=== PATIENT | male | born 1975 | race Caucasian/White ===

== ENCOUNTER → 2025-11-11 | Outpatient (CLI) | payer BC, SELFPAY ==
--- OUTSIDE RECORDS SUMMARY | 2025-11-11 08:07 | XMS RPT_ITS | CCD ---
Author Organization [facility] Care Team Providers Care Early Childhood Education Instructor Name Role Phone Christiana Foster Unavailable Unavailable Christiana Foster Unavailable Unavailable Christiana Foster Unavailable Unavailable Naveed, Christiana Unavailable Unavailable Christiana Foster Unavailable Unavailable Christiana Foster Unavailable Unavailable Unavailable Christiana Foster Unavailable Zeke Powell Unavailable Unavailable Zeke Powell Attending Unavailable Dr. Christiana Foster Primary Care Unav ailable CHRISTIANA FOSTER Primary Care Unavailable Christiana Foster MD Primary Care Provider [phone] IRMA SPARKS Attending Unavailable IRMA SPARKS Referring Unavailable CHRISTIANA FOSTER Primary Care Unavailable IMRA SPARKS Attending Unavailable CHRISTIANA FOSTER Primary Care Unavailable Medications Current Medications Medication Drug Class(es) Dates Sig (Normalized) Sig (Original) doxycycline hyclate 100 mg oral tablet (1 source) Tetracycline-c lass Drug Start: 3 End: 3 take 1 tablet by mouth twice daily doxycycline hyclate 100 mg oral tablet ; 1 tab(s) orally 2 times a day Quantity: 14 Refills: 0 Ordered: 02-Jan-2023 Zeke Powell Start: 02-Jan-2023 End: 08-Jan-2023 Generic Substitution Allowed Comments: Avoid prolonged or excessive exposure to direct and/or artificial sunlight while taking this medication.Do not take this drug if you are .Finish all this medication unless otherwise directed by prescriber.Medication should be taken with plenty of water. Comment on above: Avoid prolonged or e xcessive exposure to direct and/or artificial sunlight while taking this medication.Do not take this drug if you are .Finish all this medication unless otherwise directed by prescriber.Medication should be taken with plenty of water. hydroCHLOROthiazide 25 mg oral tablet (4 sources) Thiazide Diuretic Start: 3 End: 4 take 1 tablet by mouth once daily hydroCHLOROthiazide (HYDRODiuril) 25 mg tablet Indications: Benign essential HTN Take 1 tablet (25 mg) by mouth once daily. 30 tablet 11 06/14/2023 06/13/2024 Active Start: 04-09-2023 End: 05-14-2023 take 1 tablet by mouth once daily hydroCHLOROthiazide (HYDRODiuril) 12.5 mg tablet Indications: Benign essential HTN Take 1 tablet (12.5 mg) by mouth once daily. 30 tablet 04/09/2023 05/14/2023 Discontinued (Dose adjustment) losartan potassium 25 mg oral tablet (1 source) Angiotensin 2 Receptor Dez Start: 06-14-2023 End: 06-13-2024 take 1 tablet by mouth once daily losartan (Cozaar) 25 mg tablet Indications: Benign essential HTN Take 1 tablet (25 mg) by mouth once daily. 30 tablet 06/14/2023 06/13/2024 Active predniSONE 10 mg oral tablet (1 source) Start: 01-02-2023 End: 01-06-2023 take 3 tablets by mouth once daily at mealtime predniSONE 10 mg oral tablet ; 3 tab(s) orally once a day x 5 days Quantity: 15 Refills: 0 Ordered: 02-Jan-2023 Zeke Powell Start: 02-Jan-2023 End: 06-Jan-2023 Generic Substitution Allowed Comments: It is very important that you take or use this exactly as directed. Do not skip doses or discontinue unless directed by your doctor.Obtain medical advice before taking any non-prescription drugs as some may affect the action of this medication.Take with food or milk. Comment on above: It is very important that you take or use this exactly as directed. Do not skip doses or discontinue unless directed by your doctor.Obtain medical advice before taking any non-prescription drugs as some may affect the action of this medication.Take with food or milk. Completed/Discontinued Medications Medication Drug Class(es) Dates Sig (Normalized) Sig (Original) [id number] 200 actuat albuterol 0.09 mg/actuat metered dose inhaler (1 source) beta2-Adrenergic Agonist Start: 01-02-2023 take 2 puff(s) by inhalation twice daily as needed for cough albuterol 90 mcg/inh inhalation aerosol ; 2 puff(s) inhaled 2 times a day as needed for cough Quantity: 8.5 Refills: 0 Ordered: 02-Jan-2023 NathanZeke fay Start: 02-Jan-2023 Generic Substitution Allowed Comments: For inhalation only.It is very important that you take or use this exactly as directed. Do not skip doses or discontinue unless directed by your doctor.Obtain medical advice before taking any non-prescription drugs as some may affect the action of this medication.Shake well before use. Comment on above: For inhalation only. It is very important that you take or use this exactly as directed. Do not skip doses or discontinue unless directed by your doctor.Obtain medical advice before taking any non-prescription drugs as some may affect the action of this medication.Shake well before use. lisinopril 10 mg oral tablet (3 sources) Angiotensin Converting Enzyme Inhibitor Start: 07-22-2020 take 1 tablet by mouth once daily Lisinopril 10 MG Oral Tablet TAKE 1 TABLET DAILY. Quantity: 90 Refills: 3 Ordered: 27-Sep-2021 Christiana Foster MD Start : 22-Jul-2020 Active Multivitamin Oral Tablet (3 sources) Start: 07-22-2020 take 1 tablet by mouth once daily Multivitamin Oral Tablet TAKE 1 TABLET DAILY. Quantity: 0 Refills: 0 Ordered: 22-Jul-2020 DO Start : 22-Jul-2020 Active No Reported Medications (1 source) No Reported Medications Refills: 0 Active Problems Active Problems Problem Classification Problem Date Documented Da te Episodic/Chronic Essential hypertension (11 sources) Benign essential hypertension; Translations: [Benign essential hypertension] Onset: 04-09-2023 Chronic Headache; including migraine (3 sources) Headache; including migraine; Translations: [Headache, unspecified] Onset: 01-02-2023 01-02-2023 Comment on above: COUGH HEADACHE Immunizations and screening for infectious disease (9 sources) Patient encounter status; Translations: [Other specified vaccination] Episodic Malaise and fatigue (7 sources) Fatigue; Translations: [Other malaise and fatigue] Onset: 01-02-2023 04-09-2023 Episodic Other lower respiratory disease (2 sources) Wheezing; Translations: [Wheezing] 01-02-2023 Episodic Other non-traumatic joint disorders (6 sources) Joint pain; Translations: [Pain in joint, site unspecified] Onset: 04-09-2023 04-09-2023 Episodic Other nutritional; endocrine; and metabolic disorders (3 sources) Obesity; Translations: [Morbid (severe) obesity due to excess calories] Onset: 04-09-2023 04-09-2023 Chronic Other screening for suspected conditions (not mental disorders or infectious disease) (7 sources) Decreased testosterone level ; Translations: [Other nonspecific findings on examination of blood] Onset: 04-09-2023 04-09-2023 Episodic Unclassified (1 source) Cough, unspecified; Translations: [Cough, unspecified] Onset: 01-02-2023 Past or Other Problems Problem Classification Problem Date Documented Da te Episodic/Chronic Other lower respiratory disease (1 source) Wheezing; Translations: [Wheezing] Onset: 01-02-2023 Episodic Other upper respiratory infections (3 sources) Acute upper respiratory infection; Translations: [Acute upper respiratory infections of unspecified site] Onset: 01-02-2023 01-02-2023 Episodic Screening and history of mental health and substance abuse codes (1 source) Personal history of nicotine dependence; Translations: [Personal history of nicotine dependence] Onset: 01-02-2023 Episodic Unclassified (2 sources) Patient encounter status; Translations: [Screening for diabetes mellitus] Unclassified (1 source) Onset: 06-14-2023 06-14-2023 Results Test Name Value Interpretation Reference Range Facility BASIC METABOLIC PANELon 06-0 Anion gap [Moles/Vol] 12 mmol/L Normal 10 - 20 [facility] Comment on above: Performed By: #### B MP #### [address] [address] Calcium [Mass/Vol] 9.1 mg/dL Normal 8.6 - 10.3 [facility] Comment on above: Performed By: #### B MP #### [address] [address] Chloride [Moles/Vol] 105 mmol/L Normal 98 - 107 [facility] Comment on above: Performed By: #### B MP #### [address] [address] Creatinine [Mass/Vol] 0.95 mg/dL Normal 0.50 - 1.30 [facility] Comment on above: Performed By: #### B MP #### [address] [address] eGFR MALE >90 Normal >90 [facility] Comment on above: Result Comment: CALC ULATIONS OF ESTIMATED GFR ARE PERFORMED USING THE 2020 CKD-EPI STUDY REFIT EQUATION WITHOUT THE RACE VARIABLE FOR THE IDMS-TRACEABLE CREATININE METHODS. https://jasn.asnjournals.org/content//ASN.6171699994 Performed By: #### B MP #### [place] [id number] Glucose [Mass/Vol] 100 mg/dL High 74 - 99 [facility] Comment on above: Performed By: #### B MP #### [place] [id number] HCO3 (Bld) [Moles/Vol] 26 mmol/L Normal 21 - 32 [facility] Comment on above: Performed By: #### B MP #### [address] [address] Potassium [Moles/Vol] 4.0 mmol/L Normal 3.5 - 5.3 [facility] Comment on above: Performed By: #### B MP #### [address] [address] Sodium [Moles/Vol] 139 mmol/L Normal 136 - 145 [facility] Comment on above: Performed By: #### B MP #### [address] [address] Urea nitrogen [Mass/Vol] 16 mg/dL Normal 6 - 23 [facility] Comment on above: Performed By: #### B MP #### [address] [address] Lab Specimen Source Normal [facility] Comment on above: Performed By: #### B MP #### [facility] [address] [place] [address] Provider Note - ED v3on 12-20 Provider Note - ED v3 Provider Note: Chart Review: ED NOTES ED NOTES: Presents for evaluation of URI. Symptoms including cough, congestion, body aches, malaise, and headache have been present for 5 days and refractory to OTC meds. No fever, chills, loss of taste/smell, nausea, vomiting, abdominal pain, CP, or SOB. No exacerbating factors. No known COVID 19/flu exposure. Is a former smoker. HISTORY OF PRESENTING ILLNESS YESSI is a 47 year old Male and was seen by me at 02-Jan-2023 11:45. Triage Information: Most recent Vital Sign Value Date PAST MEDICAL HISTORY ALLERGIES/INTOLERANCES: No Known Allergies HEALTH HISTORY: No documented data. OUTPATIENT MEDICATIONS: Home Medications Review Status for Reconciliation: Complete Med Status: No Current Medications SIGNIFICANT EVENTS: Social/Behavioral Description:social alcohol , oral tobacco REVIEW OF SYSTEMS All other systems reviewed and are negative REVIEW OF SYSTEMS: Comments See HPI PHYSICAL EXAM CONSTITUTIONAL: Well appearing, well nourished, awake, alert, oriented to person, place, time/situation and in no apparent distress. HENMT: Airway patent, ears with clear tympanic membranes bilaterally. Nasal mucosa clear. Mouth with normal mucosa. Throat has no vesicles, no oropharyngeal exudates and uvula is midline. Face with no lymph node enlargement. EYES: Clear bilaterally, pupils equal, round and reactive to light. CARDIOVASCULAR: Normal rate, regular rhythm. Heart sounds S1, S2. No murmurs, rubs or gallops. PMI non-displaced. RESPIRATORY: Scattered wheezing and decreased air movement bilaterally. No rales or rhonchi. NEUROLOGICAL: Alert and oriented, no focal deficits, no motor or sensory deficits. SKIN: Skin normal color for race, warm, dry and intact. No evidence of trauma. PSYCHIATRIC: Alert and oriented to person, place, time/situation. normal mood and affect. No apparent risk to self or others. CRITICAL CARE VITAL SIGNS: T PRBP SpO2O2(LPM) %FiO2 Method 02-Jan-2023 11:32:[id number] 95 MDM MDM/ED COURSE: Discussed Findings with: patient Data Reviewed: vital signs Treatment Plan: Rx doxycycline, prednisone and albuterol inhaler. Duoneb give in office, pt tolerated well, increased air movement and decreased wheezing post treatment. Patient's clinical presentation is otherwise unremarkable at this time. Patient is discharged with instructions to follow-up with primary care or seek emergency medical attention for worsening symptoms or any new concerns. DISPOSITION Diagnosis/Annotation: ED Dx Name:Acute upper respiratory infection Code:J06.9 Name:Wheezing Code:R06.2 Disposition: discharged Type: home CONSULT CRITICAL CARE TIME Is this a critically ill patient: no Electronic Signatures: Zeke Powell (GREEN MATERIAL VALUE ADDED ASSESSOR-BACK UP SCAN COORDINATOR) (Signed 02-Jan-2023 11:53) Authored: ED Notes, HPI, PMH, ROS, PE, Results/Vital Signs, MDM/ED Course, Clinical Impression, Attestation, Chart Review, Scores Last Updated: 02-Jan-2023 11:53 by Zeke Powell (GREEN MATERIAL VALUE ADDED ASSESSOR-BACK UP SCAN COORDINATOR) Normal [facility] Office Visit (Primary Care T xt/Forms)on 08-12-2021 Follow-up visit Diagnoses/Problems Assessed Benign essential HTN (401.1) (I10) Orders Benign essential HTN Renew: Lisinopril 10 MG Oral Tablet; TAKE 1 TABLET DAILY Comprehensive Metabolic Panel; Status:Hold For - Exact Date; Requested for:Approx 12Aug2022; Patient Discussion/Summary Follow-up in 1 year for hypertension, get blood testing prior Provider Impressions Provider Impressions Free Text Note Form: Patient is seen today for hypertension, blood pressure is under good control, continues to complain of fatigue, denies unrestful sleep, denies snoring at night, suspicious about possible sleep apnea, blood testing in the past has been normal. Patient was encouraged about healthy lifestyle, plan to recheck again in 1 year. Chief Complaint 6 MO F/U HTN REV LABS History of Present Illness No headache, chest pain, shortness of breath, dizziness, lightheadedness, or edema + fatigue HBP less than 140/90 Review of Systems Constitutional: NAD, no fevers, chills, sweats or fatigue Rep: no cough or shortness of breath Cardio: no chest pain, edema, or palpitations GI: no nausea, vomiting, diarrhea, constipation, or heartburn : normal urine flow and stream, no nocturia or dysuria MS: no joint pain or significant limits of function Skin: no visible rashes or suspicious lesions Neuro: alert and oriented X4, no numbness, tingling or issues with balance Psych: no anxiety or depression Active Problems Problems Arthralgia (719.40) (M25.50) Benign essential HTN (401.1) (I10) Encounter for immunization (V03.89) (Z23) Fatigue (780.79) (R53.83) Low testosterone in male (790.99) (R79.89) Screening for diabetes mellitus (V77.1) (Z13.1) Screening for lipid disorders (V77.91) (Z13.220) Surgical History Problems History of Fracture repair Family History Mother No pertinent family history Father No pertinent family history Social History Problems Consumes alcohol (V49.89) (Z72.89) Former smoker (V15.82) (Z87.891) Patient has living will (V49.89) (Z78.9) Smokeless tobacco use (305.1) (Z72.0) Current Meds Medication NameInstruction Lisinopril 10 MG Oral TabletTAKE 1 TABLET DAILY. Multivitamin Oral TabletTAKE 1 TABLET DAILY. Allergies Medication No Known Drug Allergies Physical Exam Gen: Alert and oriented, no acute distress HEENT: normal TMs/external ear, conjunctiva normal, PERRLA/EOMI, neck supple, no lymphadenopathy or thyromegaly Resp: clear to auscultation, no audible wheezes, rales, or rhonchi, normal chest movement Cardio: regular rate and rhythm, no murmur, clicks or gallops heard, normal peripheral pulses, no edema Abdomen: normal bowel sounds, soft, non tender, non distended, no organomegaly Skin: no visible rashes or abnormal skin lesions, warm and dry [place]eruo: Alert and oriented, normal gross movement of extremities Psych: cooperative and appropriate Results/Data Comprehensive Metabolic [id number] 07:22Christiana Pratt Test NameResultFlagReference Glucose, Serum95 mg/dL74 - 99 Sodium, Nnibm385 mmol/L136 - 145 POTASSIUM4.2 mmol/L3.5 - 5.3 Chloride, Pbdav457 mmol/LH98 - 107 Bicarbonate, Serum25 mmol/L21 - 32 Anion Gap, Serum9 mmol/LL10 - 20 Blood Urea Nitrogen, Serum10 mg/dL6 - 23 CREATININE0.87 mg/dLSee Below Reference Range: 0.50 - 1.30 Calcium, Serum8.9 mg/dL8.6 - 10.3 Albumin, Serum4.1 g/dL3.4 - 5.0 ALKALINE [id number] U/L33 - 120 Protein, Total Serum6.6 g/dL6.4 - 8.2 Bilirubin, Serum Total0.7 mg/dL0.0 - 1.2 ALT (SGPT), Serum34 U/L10 - 52 Patients treated with Sulfasalazine may generate falsely decreased results for ALT. GFR Non >60 mL/min/1.73m2>60 GFR >60 mL/min/1.73m2>60 CALCULATIONS OF ESTIMATED GFR ARE PERFORMED USING THE MDRD STUDY EQUATION FOR THE IDMS-TRACEABLE CREATININE METHODS. CLIN CHEM 2007;53:766-72 AST21 U/L9 - 39 Signatures Electronically signed by : Christiana Foster MD; Aug 12 2021 8:20AM EST (Author) Normal [employer] Tobacco Screening.on 021 Fall risk assessment a) No falls within the last year [employer] [facility] Work Phone: Tobacco use status [facility] b) No [employer] [facility] Work Phone: Laboratory - Chemistry and C hemistry - challengeon 08-04-2021 Albumin BCP dye [Mass/Vol] 4.1 g/dL 3.4 - 5.0 [employer] [facility] Work Phone: ALP [Catalytic activity/Vol] 64 U/L 33 - 120 [employer] [facility] Work Phone: ALT With P-5'-P [Catalytic activity/Vol] 34 U/L 10 - 52 [employer] [facility] Work Phone: Comment on above: Patients treated wit h Sulfasalazine may generate falsely decreased results for ALT. Anion gap [Moles/Vol] 9 mmol/L below low threshold 10 - 20 [employer] [facility] Work Phone: AST With P-5'-P [Catalytic activity/Vol] 21 U/L 9 - 39 [employer] [facility] Work Phone: Bilirubin [Mass/Vol] 0.7 mg/dL 0.0 - 1.2 -[employer] [facility] Work Phone: Calcium [Mass/Vol] 8.9 mg/dL 8.6 - 10.3 [facility] Work Phone: Chloride [Moles/Vol] 108 mmol/L above high threshold 98 - 107 -[employer] [facility] Work Phone: CO2 [Moles/Vol] 25 mmol/L 21 - 32 [facility] [employer] [facility] Work Phone: Creatinine [Mass/Vol] 0.87 mg/dL See Below [employer] [facility] Work Phone: Comment on above: Reference Range: 0.5 0 - 1.30 Glucose [Mass/Vol] 95 mg/dL 74 - 99 [facility] Work Phone: Potassium [Moles/Vol] 4.2 mmol/L 3.5 - 5.3 [facility] Work Phone: Protein [Mass/Vol] 6.6 g/dL 6.4 - 8.2 [facility] Work Phone: Sodium [Moles/Vol] 138 mmol/L 136 - 145 [facility] Work Phone: Urea nitrogen [Mass/Vol] 10 mg/dL 6 - 23 [employer] [facility] Work Phone: No Panel Informationon 08-04 >60 >60 [employer] [facility] Work Phone: Comment on above: CALCULATIONS OF AP MATED GFR ARE PERFORMED USING THE MDRD STUDY EQUATION FOR THE IDMS-TRACEABLE CREATININE METHODS. CLIN CHEM 2007;53:766-72 Office Visit (Primary Care T xt/Forms)on 02-01-2021 Follow-up visit Diagnoses/Problems Assessed Encounter for immunization (V03.89) (Z23) Benign essential HTN (401.1) (I10) Orders Benign essential HTN Renew: Lisinopril 10 MG Oral Tablet; TAKE 1 TABLET DAILY Comprehensive Metabolic Panel; Status:Hold For - Exact Date; Requested for:Approx 04Aug2021; Patient Discussion/Summary Follow-up in 6 months for hypertension, get blood testing done prior and increase lisinopril to 10 mg a day. Provider Impressions Provider Impressions Free Text Note Form: Patient seen today in 6-month follow-up for hypertension. Blood pressure in the office is still above 140/90, will increase lisinopril to 10 mg once a day, recheck in 6 months. Patient was advised to check blood pressure at home with a goal being less than 140/90. Chief Complaint 6 MO F/U HTN REV LABS History of Present Illness BPs at home running high 130s-140/80s No chest pain/pressure, SOB, headaches, dizziness, lightheadedness, or edema Review of Systems Constitutional: No apparent distress, no fevers, chills, sweats, or fatigue Respiratory: No cough, SOB Cardiac: No chest pain, edema, or palpitations Active Problems Problems Arthralgia (719.40) (M25.50) Benign essential HTN (401.1) (I10) Fatigue (780.79) (R53.83) Low testosterone in male (790.99) (R79.89) Screening for diabetes mellitus (V77.1) (Z13.1) Screening for lipid disorders (V77.91) (Z13.220) Surgical History Problems History of Fracture repair Family History Mother No pertinent family history Father No pertinent family history Social History Problems Consumes alcohol (V49.89) (Z72.89) Former smoker (V15.82) (Z87.891) Patient has living will (V49.89) (Z78.9) Smokeless tobacco use (305.1) (Z72.0) Current Meds Medication NameInstruction Lisinopril 5 MG Oral TabletTAKE 1 TABLET BY MOUTH EVERY DAY Multivitamin Oral TabletTAKE 1 TABLET DAILY. Allergies Medication No Known Drug Allergies Vitals Vital Signs Recorded: 01Feb2021 07:59AM Temperature: 97.8 F Heart Rate: 96 Systolic: 148 Diastolic: 82 Height: 6 ft 1 in Weight: 282 lb 2 oz BMI Calculated: 37.22 BSA Calculated: 2.49 Tobacco Use: b) No Fall Screening: a) No falls within the last year O2 Saturation: 98 Physical Exam General: alert and oriented, no acute distress Respiratory: clear to ascultation, no audible wheezes, rales, or rhonchi. Normal chest expansion Cardiac: regular rate and rhythm, no significant murmur. Normal peripheral pulses, no edema. Brisk capillary refill Results/Data Basic Metabolic [id number] 07:23Christiana Pratt Test NameResultFlagReference Glucose, Rdway659 mg/dLH74 - 99 Sodium, Ywvkw846 mmol/L136 - 145 POTASSIUM4.2 mmol/L3.5 - 5.3 Chloride, Xwnuu661 mmol/LH98 - 107 Bicarbonate, Serum25 mmol/L21 - 32 Anion Gap, Serum10 mmol/L10 - 20 Blood Urea Nitrogen, Serum12 mg/dL6 - 23 CREATININE0.95 mg/dLSee Below Reference Range: 0.50 - 1.30 GFR Non >60 mL/min/1.73m2>60 GFR >60 mL/min/1.73m2>60 CALCULATIONS OF ESTIMATED GFR ARE PERFORMED USING THE MDRD STUDY EQUATION FOR THE IDMS-TRACEABLE CREATININE METHODS. CLIN CHEM 2007;53:766-72 Calcium, Serum9.0 mg/dL8.6 - 10.3 Signatures Electronically signed by : Christiana Foster MD; Feb 01 2021 8:18AM EST (Author) Normal [facility] Vital Signs Date Time Vital Sign Value Performing Clinician Rosario urena 06-14-2023 15:55-0400 Body height 188 cm Irma Jp TRACIE-BACK UP SCAN COORDINATOR Work Phone: [facility] 06-14-2023 15:55-0400 Body mass index (BMI) [Ratio] 37.53 kg/m2 Irma Hemarina GREEN MATERIAL VALUE ADDED ASSESSOR-BACK UP SCAN COORDINATOR Work Phone: [facility] 06-14-2023 15:55-0400 Body weight 132.59 kg Irma Jp GREEN MATERIAL VALUE ADDED ASSESSOR-BACK UP SCAN COORDINATOR Work Phone: [facility] 06-14-2023 15:55-0400 Diastolic blood pressure 82 mm[Hg] Irma Jp GREEN MATERIAL VALUE ADDED ASSESSOR-BACK UP SCAN COORDINATOR Work Phone: [facility] 06-14-2023 15:55-0400 Heart rate 100 /min Irma Wood GREEN MATERIAL VALUE ADDED ASSESSOR-BACK UP SCAN COORDINATOR Work Phone: [facility] 06-14-2023 15:55-0400 SaO2% (BldA) [Mass fraction] 98 % Irma Wood GREEN MATERIAL VALUE ADDED ASSESSOR-BACK UP SCAN COORDINATOR Work Phone: [facility] 06-14-2023 15:55-0400 Systolic blood pressure 162 mm[Hg] Irma Wood GREEN MATERIAL VALUE ADDED ASSESSOR-BACK UP SCAN COORDINATOR Work Phone: [facility] 05-14-2023 16:01-0400 Body height 188 cm Irma Wood GREEN MATERIAL VALUE ADDED ASSESSOR-BACK UP SCAN COORDINATOR Work Phone: [facility] 05-14-2023 16:01-0400 Body mass index (BMI) [Ratio] 38 kg/m2 Irma Wood GREEN MATERIAL VALUE ADDED ASSESSOR-BACK UP SCAN COORDINATOR Work Phone: [facility] 05-14-2023 16:01-0400 Body weight 134.26 kg Irma Wood GREEN MATERIAL VALUE ADDED ASSESSOR-BACK UP SCAN COORDINATOR Work Phone: [facility] 05-14-2023 16:01-0400 Diastolic blood pressure 88 mm[Hg] Irma Wood GREEN MATERIAL VALUE ADDED ASSESSOR-BACK UP SCAN COORDINATOR Work Phone: [facility] 05-14-2023 16:01-0400 Heart rate 99 /min Irma Wood GREEN MATERIAL VALUE ADDED ASSESSOR-BACK UP SCAN COORDINATOR Work Phone: [facility] 05-14-2023 16:01-0400 SaO2% (BldA) [Mass fraction] 94 % Irma Wood GREEN MATERIAL VALUE ADDED ASSESSOR-BACK UP SCAN COORDINATOR Work Phone: [facility] 05-14-2023 16:01-0400 Systolic blood pressure 180 mm[Hg] Irma Wood GREEN MATERIAL VALUE ADDED ASSESSOR-BACK UP SCAN COORDINATOR Work Phone: [facility] 01-02-2023 13:32-0500 Body height 188 cm Christiana Foster Other Phone: [facility] 01-02-2023 13:32-0500 Body temperature 97.7 [degF] Christiana Foster Other Phone: [facility] 01-02-2023 13:32-0500 Diastolic blood pressure 103 mm[Hg] Christiana Foster Other Phone: [facility] 01-02-2023 13:32-0500 Heart rate 85 /min Christiana Foster Other Phone: [facility] 01-02-2023 13:32-0500 Respiratory rate 16 /min Christiana Foster Other Phone: [facility] 01-02-2023 13:32-0500 SaO2% (BldA) [Mass fraction] 95 % Christiana Foster Other Phone: [facility] 01-02-2023 13:32-0500 Systolic blood pressure 160 mm[Hg] Christiana Foster Other Phone: [facility] 08-12-2021 08:11-0400 Body height 185.42 cm Christiana Foster Work Phone: [employer] [facility] Work Phone: 08-12-2021 08:11-0400 Body mass index (BMI) [Ratio] 37.12 kg/m2 Christiana Foster Work Phone: [employer] [facility] Work Phone: 08-12-2021 08:11-0400 Body surface area Derived from formula 2.49 m2 Christiana Foster Work Phone: [employer] [facility] Work Phone: 08-12-2021 08:11-0400 Body temperature 97.3 [degF] Christiana Foster Work Phone: [employer] [facility] Work Phone: 08-12-2021 08:11-0400 Body weight 127.63 kg Christiana Foster Work Phone: [facility] [facility] Work Phone: 08-12-2021 08:11-0400 Diastolic blood pressure 88 mm[Hg] Christiana Foster Work Phone: [facility] Work Phone: 08-12-2021 08:11-0400 Heart rate 81 /min Christiana Foster Work Phone: [facility] Work Phone: 08-12-2021 08:11-0400 SaO2% (BldA) [Mass fraction] 97 % Christiana Foster Work Phone: [facility] Work Phone: 08-12-2021 08:11-0400 Systolic blood pressure 138 mm[Hg] Christiana Foster Work Phone: [facility] [employer] [facility] Work Phone: Encounters Encounter Date Encounter Type Care Provider Facility Start: 06-14-2023 End: 06-14-2023 Office outpatient visit 15 minutes [employer] ADDED ASSESSOR-BACK UP SCAN COORDINATOR Work Phone: [employer] [facility] Comment on above: Class 2 severe obesi ty due to excess calories with serious comorbidity and body mass index (BMI) of 37.0 to 37.9 in adult ([facility]) (Primary Dx); Benign essential HTN Start: 05-14-2023 End: 05-14-2023 ambulatory [facility] Start: 05-14-2023 End: 05-14-2023 Office outpatient visit 15 minutes [employer] ADDED ASSESSOR-BACK UP SCAN COORDINATOR Work Phone: [facility] Comment on above: Benign essential HTN Start: 04-19-2023 End: 04-20-2023 ambulatory CHRISTIANA FOSTER [facility] Start: 04-09-2023 End: 04-09-2023 ambulatory [facility] Start: 01-02-2023 End: 01-02-2023 Emergency department patient visit Zeke Powell [facility] Start: 09-27-2021 AUDIT Christiana Foster Work Phone: [facility] Work Phone: Start: 08-12-2021 Office outpatient vi sit 15 minutes Christiana Foster Work Phone: [facility] Work Phone: Start: 08-04-2021 Chart Update Christiana Foster Work Phone: [facility] Work Phone: Start: 06-21-2017 End: 06-22-2017 Ambulatory Christiana Foster Facility:[facility] Procedures Date Procedure Procedure Detail Performing Clinician Start: 05-14-2023 FOLLOW UP IN FAMILY MEDICINE IRMA SPARKS Start: 04-19-2023 Basic metabolic 2000 panel - Serum or Plasma CHRISTIANA FOSTER Start: 04-09-2023 Oncology colorectal screening ashleigh 10 dna markrs IRMA SPARKS Start: 05-28-2020 Lipid 1996 panel - S jessica or Plasma Irma Sparks [employer] ADDED ASSESSOR-BACK UP SCAN COORDINATOR Work Phone: Start: 05-17-2020 Antinuclear antibodies yusuf Christiana Foster Start: 05-17-2020 Assay of thyroid stimulating hormone tsh Christiana Foster Start: 05-17-2020 Blood count complete auto&auto difrntl wbc Christiana Foster Start: 05-17-2020 Comprehensive metabo lic 2000 panel Christiana Foster Start: 05-17-2020 Cyclic citrullinated peptide antibody Christiana Foster Start: 05-17-2020 Lipid panel Dequan Foster Start: 05-17-2020 Rheumatoid factor quantitative Christiana Foster Start: 05-17-2020 Sedimentation rate r bc automated Christiana Foster Start: 05-17-2020 Testosterone [Mass/v olume] in Serum or Plasma Christiana Foster Operation on fracture Rodolfo Foster Comment on above: ARM 1991; Plan of Treatment Date Care Activity Detail Author Start: 04-24-2026 Screening for malign ant neoplasm of colon [facility] Start: 05-28-2025 Lipid panel Lipid Panel [facility] Start: 2024 Zoster Vaccines (1 o f 2) Zoster Vaccines (1 of 2) [facility] Start: 07-20-2023 Influenza vaccination [facility] Start: 06-14-2023 End: 06-14-2023 Patient encounter procedure 06/14/2023 4:00 PM EDT Office Visit [facility] [address] [place] [id number] Irma Sparks, [employer] ADDED ASSESSOR-BACK UP SCAN COORDINATOR [address] [place] [address] [facility] Start: 08-15-2022 EPV, Provider: Christiana Foster, Status: Pen, Time: 8:00 AM EPV, Provider: Christiana Foster, Status: Pen, Time: 8:00 AM [facility] Work Phone: Start: 08-12-2021 EPV, Provider: Christiana Foster, Status: Pen, Time: 8:00 AM EPV, Provider: Christiana Foster, Status: Pen, Time: 8:00 AM [facility] Work Phone: Start: 1996 DTaP/Tdap/Td Vaccine s (1 - Tdap) DTaP/Tdap/Td Vaccines (1 - Tdap) [facility] Start: 1992 Diabetes mellitus screening Diabetes Screening [facility] Start: 1992 Hepatitis C screening Hepatitis C [facility] Start: 1975 MMR Vaccines (1 of 1 - Standard series) MMR Vaccines (1 of 1 - Standard series) [facility] Start: 01-31-1975 COVID-19 Vaccine (#1) COVID-19 Vacci ne (#1) [facility] Start: 1974 Hepatitis B Vaccines (1 of 3 - 3-dose series) Hepatitis B Vaccines (1 of 3 - 3-dose series) [facility] Start: 1974 HIV screening HIV Screening [facility] Start: 1974 Screening for malign ant neoplasm of colon [facility] Start: 1974 Yearly Adult Physical Yearly Adult P hysical [facility] Antinuclear antibodi es yusuf Anti Nuclear Antibody (reflexes CHAVO panel if Positive) [facility] [employer] [facility] Work Phone: Comment on above: Before 18Jun2020 Blood count complete auto&auto difrntl wbc Complete Blood Count + Differential [facility] [employer] [facility] Work Phone: Comment on above: Before 18Jun2020 Comprehensive metabo lic 2000 panel Comprehensive Metabolic Panel [facility] [employer] [facility] Work Phone: Comment on above: Before 18Jun2020 Cyclic citrullinated peptide antibody Citrulline Antibody [facility] [employer] [facility] Work Phone: Comment on above: Before 18Jun2020 Lipid panel Lipid Panel [facility] [facility] Work Phone: Comment on above: Before 18Jun2020 Rheumatoid factor quantitative Rheumatoid Factor, Serum or Plasma [facility] [employer] [facility] Work Phone: Comment on above: Before 18Jun2020 Sedimentation rate r bc automated Sedimentation Rate, Erythrocyte [facility] [employer] [facility] Work Phone: Comment on above: Before 18Jun2020 Testosterone [Mass/Vol] Testoste jose Free + Total [facility] [facility] Work Phone: Comment on above: Before 18Jun2020 TSH Qn TSH - Thyroid Stimulating Hormone, Serum [employer] [facility] Work Phone: Comment on above: Before 18Jun2020 NEGATED: Highlighted row has been ruled out! Planned Goals not documented [employer] [facility] [employer] Phone: Payers Date Payer Category Payer Unknown [id number] 2017 Unknown 1974 Unknown [id number] 1974 Unknown [id number] 1974 Unknown [id number] 1974 Unknown [id number] Social History Date Type Detail Facility Start: 05-14-2023 End: 06-14-2023 Former smoker Former smoker -[employer] [facility] Work Phone: Tobacco smoking consumption unknown [facility] Start: 04-09-2023 Tobacco smoking status NHIS Never smoked tobacco [facility] Work Phone: Start: 04-09-2023 Tobacco use and exposure User of smokeless tobacco [facility] Work Phone: History of tobacco use Chews Tobacco [facility] Work Phone: Start: 05-14-2023 End: 06-14-2023 Alcohol intake Defer [facility] Work Phone: Start: 05-14-2023 End: 06-14-2023 Tobacco use panel [facility] Work Phone: Start: 1975 Sex Assigned At Not on file [facility] Work Phone: Start: 05-04-2023 End: 06-14-2023 Exposure to SARS-CoV-2 (event) Not sure [facility] NEGATED: Highlighted row - - -[employer] [facility] Work Phone: Functional Status Date Assessment Result Facility NEGATED: Highlighted row Functional performance Functional status health issues are not documented [facility] Work Phone: Mental Status Date Assessment Result Facility NEGATED: Highlighted row Cognitive function [Interpretation] Cognitive status health issues are not documented [facility] Work Phone: History of Present illness Narrative 06-14-2023 MALENA Meeks - 06/14/2023 4:00 PM EDT Note Date & Type Note Facility 06-14-2023 History of Present illness Narrative Subjective Patient ID: Yessi White is a 47 y.o. male who presents for Follow-up (Blood pressure check ). Check comes to the office for 1 month blood pressure recheck. Community Blood pressures: 120-140's/70-80's. On Lisinopril in past & states it wasn't helping with treating elevated BP States blood pressure always elevated in doctor's office due to anxiety No caffeine Alcohol: on weekends No extra salt in food Review of Systems Respiratory: Negative for choking and chest tightness. Cardiovascular: Negative for chest pain, palpitations and leg swelling. Neurological: Negative for dizziness, syncope, weakness, numbness and headaches. Objective BP 162/82 Pulse 100 Ht 1.88 m (6' 2) Wt 133 kg (292 lb 4.8 oz) SpO2 98% BMI 37.53 kg/m Physical Exam Vitals and nursing note reviewed. Constitutional: Appearance: Normal appearance. HENT: Head: Normocephalic. Cardiovascular: Rate and Rhythm: Normal rate and regular rhythm. Heart sounds: Normal heart sounds. Pulmonary: Effort: Pulmonary effort is normal. Breath sounds: Normal breath sounds. Musculoskeletal: Cervical back: Normal range of motion. Right lower leg: No edema. Left lower leg: No edema. Skin: General: Skin is warm and dry. Neurological: General: No focal deficit present. Mental Status: He is alert and oriented to person, place, and time. Psychiatric: Mood and Affect: Mood normal. Thought Content: Thought content normal. Assessment/Plan Problem List Items Addressed This Visit Benign essential HTN Relevant Medications hydroCHLOROthiazide (HYDRODiuril) 25 mg tablet losartan (Cozaar) 25 mg tablet Class 2 severe obesity due to excess calories with serious comorbidity and body mass index (BMI) of 37.0 to 37.9 in adult ([facility]) - Primary documented in this encounter [facility] Work Phone: Instructions 06-14-2023 Patient Instructions Note Date & Type Note Facility 06-14-2023 Instructions MALENA Meeks - 06/14/2023 4:00 PM EDT Add losartan 25 mg by mouth daily check blood pressures 2-3 times per week and record. Phone update in 1 weekBMI was above normal measurement. Current weight: 133 kg (292 lb 4.8 oz) Weight change since last visit (-) denotes wt loss -3.7 lbs Weight loss needed to achieve BMI 25: 98 Lbs Weight loss needed to achieve BMI 30: 59.1 Lbs Provided instructions on dietary changes Provided instructions on exercise Advised to Increase physical activity. Discussed weight loss, reduction of sodium intake to less than 2.4G daily and 30' physical activity most days of the week. Discussed DASH eating plan with avoidance of foods high in saturated/trans fats, limit sugar-sweetened beverages/foods, increase vegetable/fruit/whole grain consumption. Choose low-fat dairy products, fish, poultry, beans & nuts. documented in this encounter [facility] Work Phone: History of Present illness Narrative 05-14-2023 MALENA Meeks - 05/14/2023 4:00 PM EDT Note Date & Type Note Facility 05-14-2023 History of Present illness Narrative Subjective Patient ID: Yessi White is a 47 y.o. male who presents for Follow-up (1 mo). Yessi comes to the office for a 1 MO PRESTON on HTN. On Lisinopril in past & states it wasn't helping with treating elevated BP States blood pressure always elevated in doctor's office due to anxiety Community BP Readings: 138-140/80's Chews daily- discussed cutting back and trying to reduce the amount of tobacco consumed daily Alcohol: on weekends No extra salt in food Discussed weight loss, reduction of sodium intake to less than 2.4G daily and 30' physical activity most days of the week. Discussed DASH eating plan with avoidance of foods high in saturated/trans fats, limit sugar-sweetened beverages/foods, increase vegetable/fruit/whole grain consumption. Choose low-fat dairy products, fish, poultry, beans & nuts. Increase hydrochlorothiazide to 25mg daily RTC 1 MO - may be virtual CRC Screening: cologuard negative from 04/24/23 Recent BMP unremarkable Review of Systems Constitutional: Negative for appetite change and fatigue. Eyes: Negative for visual disturbance. Respiratory: Negative for cough and shortness of breath. Cardiovascular: Negative for leg swelling. Neurological: Negative for dizziness, syncope, speech difficulty, weakness, light-headedness, numbness and headaches. Objective BP 180/88 Pulse 99 Ht 1.88 m (6' 2) Wt 134 kg (296 lb) SpO2 94% BMI 38.00 kg/m Physical Exam Vitals and nursing note reviewed. Constitutional: Appearance: Normal appearance. HENT: Head: Normocephalic. Cardiovascular: Rate and Rhythm: Normal rate and regular rhythm. Heart sounds: Normal heart sounds. Pulmonary: Effort: Pulmonary effort is normal. Breath sounds: Normal breath sounds. Musculoskeletal: Cervical back: Normal range of motion. Right lower leg: No edema. Left lower leg: No edema. Skin: General: Skin is warm and dry. Neurological: General: No focal deficit present. Mental Status: He is alert and oriented to person, place, and time. Psychiatric: Mood and Affect: Mood normal. Thought Content: Thought content normal. Assessment/Plan Problem List Items Addressed This Visit Circulatory Benign essential HTN Relevant Medications hydroCHLOROthiazide (HYDRODiuril) 25 mg tablet Other Relevant Orders Follow Up In Primary Care 1. Benign essential HTN Follow Up In Primary Care Follow Up In Primary Care hydroCHLOROthiazide (HYDRODiuril) 25 mg tablet increase HCTZ 25mg daily; RTC 1 MO for HTN CK; CK BP @ home 2-3x/w & record documented in this encounter [facility] Work Phone: Instructions 05-14-2023 Patient Instructions Note Date & Type Note Facility 05-14-2023 Instructions MALENA Meeks - 05/14/2023 4:00 PM EDT Increase hydrochlorothiazide to 25mg daily documented in this encounter [facility] Work Phone: Evaluation note Note Date & Type Note Facility Evaluation note Diagnosis Benign essential HTN documented in this encounter [facility] Work Phone: Evaluation note Note Date & Type Note Facility Evaluation note Diagnosis Class 2 severe obesity due to excess calories with serious comorbidity and body mass index (BMI) of 37.0 to 37.9 in adult (CMS/HCC)- Primary Benign essential HTN documented in this encounter [facility] Work Phone: History of Present illness Narrative Note Date & Type Note Facility History of Present illness Narrative No headache, chest pain, shortness of breath, dizziness, lightheadedness, or edema+ fatigueHBP less than 140/90 [facility] Work Phone: Reason for referral (narrative) Consultation (Routine) - Authorized Note Date & Type Note Facility Reason for referral (narrati ve) Specialty Diagnoses / Procedures Referred By Devonte serna Referred To Contact Primary Care Diagnoses Benign essential HTN Procedures Follow Up In Primary Care Irma Sparks APRN-CNP [address] [place] [address] Referral ID Status Reason Start Date Expiration Date V isits Requested Visits Authorized [id number] Authorized 05/14/2023 11/10/2023 1 1 [facility] Work Phone: Summary Purpose Family History Mother Name Dates Details No pertinent family history( V49.89, Z78.9) Status:Active Father Name Dates Details No pertinent family history( V49.89, Z78.9) Status:Active Unknown Family Member Name Dates Details No pertinent family history: Mother, Father(V49.89, Z78.9) Status:Active Unknown Family Member Name Dates Details No pertinent family history: Mother, Father(V49.89, Z78.9) Status:Active Unknown Family Member Name Dates Details No pertinent family history: Mother, Father(V49.89, Z78.9) Status:Active Advance Directives No Advanced Directives Records FoundNo Advanced Directives Records FoundNo Advanced Directives Records FoundNo Advanced Directives Records FoundNo Advanced Directives Records Found Chief Complaint 6 MO F/U HTN REV LABS Additional Source Comments (unrecognized sect ion and content) No Status Records FoundNo Status Records FoundNo Status Records FoundNo Status Records FoundNo Status Records Found INFORMATION SOURCE (unrecogn ized section and content) DATE CREATED AUTHOR 05/15/2018 [facility] DATE CREATED AUTHOR AUTHOR'S ORGANIZ ATION 08/13/2021 [employer] DATE CREATED AUTHOR AUTHOR'S ORGANIZ ATION 04/28/2023 [facility] DATE CREATED AUTHOR AUTHOR'S ORGANIZ ATION 04/28/2023 [facility] DATE CREATED AUTHOR AUTHOR'S ORGANIZ ATION 05/15/2023 [facility] <item> Privacy Markings (unrecogniz ed section and content) Section Author: Debo Kearns PROHIBITION ON REDISCLOSURE OF CONFIDENTIAL INFORMATION This notice accompanies a disclosure of information concerning a client made to you with the consent of such client. Reason for Visit (unrecogniz ed section and content) Reason Comments Follow-up 1 mo Specialty Diagnoses / Procedures Referred By Devonte serna Referred To Contact Primary Care Diagnoses Benign essential HTN Procedures Follow Up In Primary Care JpIrma Fredis, [employer] ADDED ASSESSOR-BACK UP SCAN COORDINATOR [address] [place] [address] Referral ID Status Reason Start Date Expiration Date V isits Requested Visits Authorized [id number] Authorized 04/09/2023 10/06/2023 1 1 Reason Comments Follow-up Blood pressure check Care Teams (unrecognized sec tion and content) Early Childhood Education Instructor Relationship Specialty Start Date End Date Christiana Foster MD [address] [phone] PCP - General 05/28/20 Early Childhood Education Instructor Relationship Specialty Start Date End Date Christiana Foster MD [address] [place] [address] PCP - General 05/28/20 FOR RECORDS PERTAINING TO PATIENTS WHO ARE OR HAVE BEEN ENROLLED IN A CHEMICAL DEPENDENCY/SUBSTANCEABUSE PROGRAM, SOME INFORMATION MAY BE OMITTED. This clinical summary was aggregated from multiple sources. Caution should be exercised in using it in the provision of clinical care. This summary normalizes information from multiple sources, and as a consequence, information in this document may materially change the coding, format and clinical context of patient data. In addition, data may be omitted in some cases. CLINICAL DECISIONS SHOULD BE BASED ON THE PRIMARY CLINICAL RECORDS. [facility] [employer] [facility]. provides no warranty or guarantee of the accuracy or completeness of information in this document.
[2025-11-11 10:15] LABS: Hematocrit 45.2 % (40-54); Hemoglobin 15.7 g/dL (13.0-16.5); Immature Granulocytes Count 0.020 X10^3/uL (0.0-0.0); Mean Corp Hgb Conc 34.7 g/dL (32-36); Mean Corpuscular Volume 86.3 fL (80-94); Mean Platelet Vol. 9.9 fl (6.2-12.0); NRBC Flagged by Analyzer 0 % (0-5); Platelet Count 243 K/mm3 (150-450); RBC Distribution Width CV 12.0 % (11.6-14.6); RBC Distribution Width SD 38.0 fl (35.1-43.9); Red Blood Count 5.24 M/mm3 (4.6-6.2); White Blood Count 5.6 K/mm3 (4.4-11.0)
[2025-11-11 10:41] LABS: AST(SGOT) 30 U/L (<=37); Alanine Aminotransfer ALT/SGPT 48 U/L (<=46); Albumin, Serum 4.3 g/dL (3.5-5.0); Alkaline Phosphatase 72 U/L (40-129); Anion Gap 10 (7-18); BUN 13 mg/dL (4-19); BUN/Creat Ratio 12.5 RATIO (10-20); Calcium,Total 9.2 mg/dL (7.6-11.0); Carbon Dioxide 25.4 mmol/L (20.0-29.0); Chloride 105 mmol/L (96-106); Cholesterol 179 mg/dL (<=200); Globulin 2.6 g/dL (2.2-4.2); Glucose 112 mg/dL (70-99); Low Density Lipoprotein Calc. 110 mg/dL; Potassium 4.2 mmol/L (3.5-5.1); Triglycerides 131 mg/dL; Very Low Density Lipoprotein 26 mg/dL (5-40); cholesterol:hdl ratio screen 3.95
== END | disposition home or self-care (01) ==
LOC: MTLAB 08:04
PROVIDERS: Nurse Practitioner Family; PCP Internal Medicine; Referring Provider Internal Medicine; Visit Provider Internal Medicine
DX: Z00.00 Encounter for general adult medical examination without abnormal findings (principal); Z13.6 Encounter for screening for cardiovascular disorders; I10 Essential (primary) hypertension; R73.09 Other abnormal glucose
CPT/HCPCS: 36415; 80053; 80061; 83036; 85025